=== PATIENT | male | born 1960 | race Caucasian/White ===

== ENCOUNTER 2021-11-24 10:17 | Inpatient (IN) | payer OTHER ==
[~2021-11-24] VITALS: Ht 167.6 cm; Wt 90.3 kg
--- NOTE | ~2021-11-24 | O ---
[facility] [place] [address] OPERATIVE REPORT Name: BRITTANIE SALDANA Room #: 463-P ADM IN M.R.#: [id number] Admission: 11/24/21 Attend Phys: Luis Sorensen MD Discharge: Date of : 62 Report #: [id number] THIS REPORT FOR: cc: FAM - Family physician unknown FAM - Family physician unknown Kevin White MD ~ DATE OF SERVICE: 11/25/2021 PREOPERATIVE DIAGNOSIS: Right below-knee amputation, chronic nonhealing surgical wound measuring 9 x 9 cm, 4 x 4 cm. POSTOPERATIVE DIAGNOSIS: Right below-knee amputation, chronic nonhealing surgical wound measuring 9 x 9 cm, 4 x 4 cm. OPERATION: Excisional debridement of nonhealing surgical wound of the right BKA stump, 9 x 9 cm, 4 x 4 cm (97 square cm), excisional depth was down through muscle. SURGEON: Kevin White. ANESTHESIA: General. ESTIMATED BLOOD LOSS: Minimal. SPECIMENS: Deep tissue for culture. DESCRIPTION OF PROCEDURE: After informed consent was obtained, the patient was brought to the operating room and placed supine. SCDs were placed and working, preoperative antibiotics were already administered, general anesthesia was induced. The right BKA stump was prepped and draped in the usual sterile fashion. This was an excisional debridement. Depth was down through the muscle. A 100% of the wounds were debrided. Post-debridement wound areas were 9 x 9 x 0.1 cm and 4 x 4 x 0.1 cm. A 100% of wounds were debrided. I used cautery to excise away necrotic tissue down through muscle. The area was then packed with sterile gauze. The wound beds were fair. Areas were dressed with 4 x 4's, Kerlix and Tay wrap. COMPLICATIONS: None. DISPOSITION: The patient was taken to recovery in satisfactory condition. By: 31 43 Kevin White MD /nt
[2021-11-24 10:24] VITALS: BP 93/69
[2021-11-24 10:54] LABS: ABSOLUTE NEUTROPHILS 8.4 thou/uL (1.4-8.2); BASOPHILS 0.3 % (0.0-2.0); EOSINOPHILS 0.8 % (0.0-3.0); HEMATOCRIT 37.4 % (42.0-52.0); HEMOGLOBIN 12.6 gm/dL (14.0-18.0); LYMPHOCYTES 10.9 % (24.0-44.0); MCH 30.9 pg (26.0-34.0); MCHC 33.8 g/dL (28.0-37.0); MCV 91.4 fL (80.0-100.0); MONOCYTES 4.4 % (1.0-8.0); PLATELET COUNT 238 thou/uL (150-400); POLYS 83.6 % (36.0-66.0); RBC 4.09 mil/uL (4.50-6.00); RDW 15.8 % (10.5-14.5); WBC 10.1 thou/uL (4.0-11.0)
[2021-11-24 10:58] LABS: CALCIUM 6.3 mg/dL (8.5-10.1); CREATININE 1.5 mg/dL (0.7-1.3)
[2021-11-24 11:00] LABS: POTASSIUM 2.5 mmol/L (3.5-5.1)
[2021-11-24 13:01] VITALS: BP 100/57
[2021-11-24] MEDS ORDERED: FLUOXETINE HCL40 MG PO (13:18)
[2021-11-24] MEDS ORDERED: CLOPIDOGREL75 MG PO (13:18)
[2021-11-24] MEDS ORDERED: LEVOTHYROXINE125 MCG PO (13:18)
[2021-11-24] MEDS ORDERED: BUSPIRONE HCL10 MG PO (13:18)
[2021-11-24] MEDS ORDERED: HYDROCHLOROTHIA25 M1 PO (13:18)
[2021-11-24 13:29] VITALS: BP 95/50
[2021-11-24 14:00] VITALS: BP 97/64
--- NOTE | 2021-11-24 15:01 | NUR ---
PT ADMITTED RELATED TO CELLULITIS, CHRONIC WOUND. CM REVIEWED CHART AND SPOKE WITH CARE TEAM. CM MET WITH PT AT BEDSIDE THIS DAY. PT APPEARES TO BE A&O X4. CM ROLE INTRODUCED. PT INDICATED HE HAD BEENAT [facility] SKILL[facility] PRIOR TO ADMISSION. PT HD BKA IN AUGUST AND HAS BEEN AT [facility] SKILLED SINCE. PT INICATED HE HAD BEEN GETTIGN DAILY THREAPY PT AND THAT THEY HAD USED A WC, SLIDEBOARD, AND COLE LIFT TO ASSIST WITH MOBILITY THREAD CHECKER. PT INDICATED HE NEEDED ASSISTANCE WITH TRANSFERS. PT INDICATED HE HAS AN APARTMENT WHERE HE HAD BEEN LIVING ALONE PRIOR TO HIS HOSPITALIZATION WHEN BKA OCCURED. ADDRESS [address] [place] [address] [address] [place] [address]. PT INDICATED HE HAS A FWW FOR USE THERE AND HCBS THROUGH A COMPANY THAT SOUNDS LIKE AT HOME [employer] NAMED [employer] 5 DAYS A WEEK ABOUT 2.5 HRS PER DAY. PT INDICATED HE WOULD PREFER TO RETURN DIRECTLY HOME ONCE MEDICALLY STABLE RATHER THEN GO BACK TO [facility]. CM ASKED IF PT WOULD BE AGREEABLE TO RETURN OR TO CONTINUE WITH SKILLED POST ACUTE CARE STAY IF RECOMMEND AND PT WAS NONCOMMITTAL AT TIME OF ASSESSMENT. PT INDICATED HE DOESN'T HAVE ANY CONTACTS IN CASE OF AN EMERGENCY. CM FOLLWIING REGARDING DC PLANNING. PT ON IV VAN AND CEFEPIME WC CONSULTED.
--- NOTE | 2021-11-24 15:54 | NUR ---
ASSUMED PT CARE FROM ED AT 1400. PT IS ALERT & ORIENTED X4 BUT VERY FUSSY. PT IS A WHEELCHAIR BOUND. PT HAS R BKA AND GOT INFECTED. PT HAS L CELLULITIS. PT IS ON 2L NC 02. PT C/O OF PAIN ON R LEG AND GIVEN PAIN MEDICATION PER PT REQUEST. FINISHED ADMISSION BUT UNABLE TO TAKE PICTURES DUE TO [facility] NOT AVAILABLE. WILL ENDORSE NIGHT NURSE. WILL FOLLOW POC.
[2021-11-24 20:38] VITALS: BP 113/78
--- NOTE | 2021-11-25 05:07 | NUR ---
ASSUMED PT CARE AT 1900. PT IS ALERT & ORIENTED X 4. PT HAS HAD MULTIPLE C/O OF PAIN, ADMINISTERED PAIN MEDS PRN AND NOTED RELIEF. PT HAS WOUNDS ON SACRUM, RIGHT BKA INFECTION, LEFT LOWER EXTREMITY CELLULITIS, AND LEFT HEEL WOUND. THIS NURSE TOOK PICTURES OF WOUNDS AND PLACED THEM IN PT'S CHART AND CONSULTED AUTOMATION CLERK. IV ABX & IVF ADMINISTERED. VSS AFEBRILE. PT IS ABLE TO MAKE NEEDS KNOWN AND ALL NEEDS ARE MET AT THIS TIME. CONTINUE WITH PLAN OF CARE.
[2021-11-25 06:06] LABS: CREATININE 1.2 mg/dL (0.7-1.3)
[2021-11-25 06:09] LABS: POTASSIUM 3.5 mmol/L (3.5-5.1)
[2021-11-25 06:11] LABS: CALCIUM 5.7 mg/dL (8.5-10.1); MAGNESIUM 0.4 mg/dL (1.8-2.4)
[2021-11-25 06:14] LABS: ABSOLUTE NEUTROPHILS 6.5 thou/uL (1.4-8.2); BASOPHILS 0.3 % (0.0-2.0); EOSINOPHILS 0.8 % (0.0-3.0); MCH 30.7 pg (26.0-34.0); MCHC 33.2 g/dL (28.0-37.0); MCV 92.5 fL (80.0-100.0); MONOCYTES 5.5 % (1.0-8.0); PLATELET COUNT 188 thou/uL (150-400); POLYS 81.4 % (36.0-66.0); RBC 3.57 mil/uL (4.50-6.00); RDW 15.6 % (10.5-14.5); WBC 7.9 thou/uL (4.0-11.0)
[2021-11-25 08:09] VITALS: BP 105/72
--- NOTE | 2021-11-25 12:21 | NUR ---
PT CONTINUES ON CEFEPIME AND VANC. PT TO HAVE I&D THIS DAY. CM TO SEND CLINICAL UPDATE TO [facility] POST PROCEDURE. CARE TEAM INDICATED THAT PT WILL BE HERE THROUGH THE WEEKEND. CM FOLLOWING REGARDING DC PLANNING.
[2021-11-25 21:14] VITALS: BP 115/76
--- NOTE | 2021-11-26 04:55 | HC ---
[facility] [place] [address] CONSULTATION Name: BRITTANIE SALDANA Room #: 463-P ADM IN M.R.#: [id number] Admission: 11/24/21 Attend Phys: Luis Sorensen MD Discharge: Date of : 62 Report #: [id number] THIS REPORT FOR: cc: FAM - Family physician unknown FAM - Family physician unknown Jae Cavazos MD ~ DATE OF SERVICE: 11/25/2021 INFECTIOUS DISEASE CONSULTATION ATTENDING PHYSICIAN: Dr. Sorensen. REASON FOR EVALUATION: Right stump site of below-knee amputation increasing inflammation, suggests cellulitis with breakdown. HISTORY OF PRESENT ILLNESS: Chart reviewed. The patient examined. This is a 61-year-old gentleman with history of diabetes mellitus, complicated by vasculopathy, also has underlying COPD, continues to smoke. He underwent previous right below-knee amputation. Also, more recently has had left great toe amputation in 08/2021. Apparently felt to have wound-related infection with increasing inflammation associated with the right stump. He was seen in the wound care center and referred for hospitalization. He is scheduled to undergo operative debridement. It is difficult to ascertain history, he is somewhat reluctant. He denies significant fevers, chills. Appetite has been satisfactory. He reports his blood sugars have been reasonably well controlled. Denies any pulmonary or gastrointestinal complaints. He was empirically started on therapy with cefepime and vancomycin. He did undergo additional testing. Coronavirus testing was negative. Lactic acid 1.4. Sed rate of 36. Blood cultures collected at time of admission are sterile thus far. ALLERGIES: None known. CURRENT MEDICATIONS: Include fluoxetine, levothyroxine, pantoprazole, enoxaparin, cefepime, vancomycin, buspirone, hydrocodone. PAST MEDICAL HISTORY: As described above, history of diabetes mellitus type 2, complicated by vasculopathy, has underlying COPD, chronic anemia, history of depression, previous right below-knee amputation 08/2021 and left great toe amputation. SOCIAL HISTORY: He continues to smoke a pack a day. No ethanol, no illicit drug use. FAMILY HISTORY: Noncontributory. REVIEW OF SYSTEMS: Otherwise unremarkable. [facility] [address] [place] [address] CONSULTATION Name: BRITTANIE SALDANA Room #: 463-P [facility] IN [facility]#: [id number] Admission: 11/24/21 Attend Phys: Luis Sorensen MD Discharge: Date of : 62 Report #: [id number] PHYSICAL EXAMINATION; GENERAL: Appears somewhat older than stated age, chronically ill-appearing, undernourished, mild to moderate distress, slightly encephalopathic. VITAL SIGNS: Temperature 97.6, pulse 106, respirations 19, blood pressure 105/72. SKIN: Warm, dry, no rashes. HEENT: Normocephalic. Extraocular muscles intact. NECK: Supple. LUNGS: Diminished breath sounds. There are some wheezes. HEART: Regular. I do not appreciate murmur. ABDOMEN: Mildly distended, somewhat firm, nontender. EXTREMITIES: Right lower extremity dressing in place at the stump site. GENITOURINARY: Deferred. RECTAL: Deferred. LABORATORY DATA: Recent CBC from today, white count 7.9, H and H 11.0 and 33.0, platelets of 188. Electrolytes: Sodium 132, potassium 3.5, chloride 94, bicarbonate 28, anion gap of 10, BUN and creatinine 15 and 1.2. Estimated GFR of 62. ASSESSMENT AND PLAN: Inflammatory process involving the right stump failure with skin and soft tissue infection. We will continue empiric broad-spectrum antimicrobial therapy. Noted, he is scheduled to undergo operative debridement today. We will follow postoperatively. At this point, he is not overtly toxic. We will add incentive spirometry. He is certainly at risk for additional complications. <ELECTRONICALLY SIGNED> By: Jae Cavazos MD 11/26/21 0455 [id number] Jae Cavazos MD /nt
--- NOTE | 2021-11-26 05:56 | NUR ---
Pt returned from OR at 2100 via bed accompanied by PACU nurses. A/OX4,VSS. C/o pain 10/10 medicated per EMAR with some relief reported. Dsg to right stump C/D/I. Voiding per urinal. Fall precautions in place will continue to monitor pt.
[2021-11-26 09:33] VITALS: BP 111/71
[2021-11-26 13:21] VITALS: BP 111/71
[2021-11-26 20:03] VITALS: BP 113/76
--- NOTE | 2021-11-27 03:59 | NUR ---
Assumed pt care at 1900. A/OX4,VSS.C/o pain to right stump medicated per EMAR with relief reported.Dsg to right stump C/D/I. Poor PO intake,on IVF. Resting quietly at this time w/o any distress will continue to monitor pt. Fall precautions in place.
[2021-11-27 06:47] LABS: HEMATOCRIT 30.3 % (42.0-52.0); HEMOGLOBIN 10.7 gm/dL (14.0-18.0); MCH 32.6 pg (26.0-34.0); MCHC 35.1 g/dL (28.0-37.0); MCV 92.8 fL (80.0-100.0); RBC 3.27 mil/uL (4.50-6.00); RDW 15.6 % (10.5-14.5)
[2021-11-27 07:07] LABS: CALCIUM 6.8 mg/dL (8.5-10.1); CREATININE 0.9 mg/dL (0.7-1.3)
[2021-11-27 07:12] LABS: POTASSIUM 2.9 mmol/L (3.5-5.1)
[2021-11-27 07:28] VITALS: BP 117/72
--- NOTE | 2021-11-27 09:57 | NUR ---
0712 LAB CALLED WITH CRITICAL LOW POTASSIUM OF 2.[address] RIVAS PAGED 0743 DR. RIVAS CALLED BACK, REPORTED LAB VALUE, PT ON POTASSIUM PROTOCOL, INITIATED 08 PHARMACY CALLED AND STATED OUT OF IV POTASSIUM AND TO GIVE 20 MEQ EVERY HOUR X 3, DRAW LAB 4 HOURS AFTER 3RD/LAST DOSE. 1000 PT IS STILL REFUSING TURNS, ANNOYED WITH STAFF, DOES NOT WISH TO BE BOTHERED.
[2021-11-27 15:43] VITALS: BP 117/77
--- NOTE | 2021-11-27 19:16 | NUR ---
BEDSIDE SHIFT REPORT GIVEN TO NIGHT NURSE, LINES IN PLACE, PT IN STABLE CONDITION, NEEDS MET
[2021-11-27 19:26] VITALS: BP 123/7
--- NOTE | 2021-11-28 04:05 | NUR ---
RECEIVED CARE OF THIS PATIENT AT 1900. PATIENT ALERT AND ORIENTED X4 BUT IS VERY FORGETFUL. HAS BEEN TOLD TO USE CALL LIGHT AND SHOWN HOW TO USE SEVERAL TIMES BUT STILL CALL OUT. DRESSING ON R STUMP D/I. ACCUCHECK WAS 88. NO COVERAGE ORDERED. IV PATENT IN RFA WITH FLUIDS INFUSING. L HAND EDEMATOUS. HAS ONE EPISODE OF EMESIS OF 10CC BROUN EMESIS. C/O PAINM MED GIVEN. SLEPT OFF AND ON DURING NIGHT.
[2021-11-28 05:33] LABS: HEMATOCRIT 31.7 % (42.0-52.0); HEMOGLOBIN 10.5 gm/dL (14.0-18.0); MCH 31.1 pg (26.0-34.0); MCHC 33.2 g/dL (28.0-37.0); MCV 93.6 fL (80.0-100.0); RBC 3.39 mil/uL (4.50-6.00); RDW 15.8 % (10.5-14.5); WBC 6.2 thou/uL (4.0-11.0)
[2021-11-28 05:43] LABS: ALBUMIN 1.3 g/dL (3.4-5.0); CREATININE 0.9 mg/dL (0.7-1.3); MAGNESIUM 1.1 mg/dL (1.8-2.4); POTASSIUM 3.7 mmol/L (3.5-5.1)
[2021-11-28 07:05] VITALS: BP 111/70
[2021-11-28 15:58] VITALS: BP 123/79
--- NOTE | 2021-11-28 16:56 | NUR ---
CARE TEAM INDICATED THAT PT NEEDED PICC FOR IV ABX UPON DC. AWAITING ORDER FOR PICC. CM HAD GIVEN ADMISSIONS AT [facility] A HEADS UP THAT PT WOULD LIKELY BE MEDICALLY STABLE TO DC BACK THIS DAY. THEY WERE AWARE AND ABLE TO ACCEPT. STILL AWAITING PICC OF THIS TIME. CM TO FACILITATE DC BACK TO [facility] SKILLED THIS AFTERNOON.
--- NOTE | 2021-11-28 18:36 | NUR ---
VAT CONSULTED FOR PICC. PT SLIGHTLY AGGITATED. HARSH COUGH THROUGHOUT PROCEDURE,PT KEPT PULLING STERILE FIELD DOWN AND COUGHING. CHANTE BRACHIAL WAS WIDELY PATENT WITH USG ,MEASURED 37%. 4FR POWER SL PICC TRIMMED TO 37CM INSERTED TO 0CM WITH PEAKED PWAVES FOR CONFIRMATION. PICC RELEASED FOR IMMEDIATE USE PER PROTOCOL
[2021-11-28 20:49] VITALS: BP 126/79
--- NOTE | 2021-11-29 12:54 | HC ---
[facility] [place] [address] CONSULTATION Name: BRITTANIE SALDANA Room #: 463- ADM IN M.R.#: [id number] Admission: 11/24/21 Attend Phys: Luis Sorensen MD Discharge: Date of : 62 Report #: [id number] THIS REPORT FOR: cc: FAM - Family physician unknown FAM - Family physician unknown Anthony Blackwell MD ~ DATE OF SERVICE: 11/25/2021 CHIEF COMPLAINT: Multiple skin ulcers. HISTORY OF PRESENT ILLNESS: This is a 61-year-old male patient with a history of type 2 diabetes mellitus, underlying COPD, who has been admitted with breakdown of his right BKA stump. He had an x-ray suggesting periosteal reactive changes. He has a sacral ulcer as well as a left heel ulcer and I have been asked to see him with regard to wound care. He is being seen by surgery and then scheduled to go to surgery for debridement. PAST MEDICAL HISTORY: Positive for COPD, type 2 diabetes mellitus, anemia, peripheral vascular disease, major depressive disorder and history of tobacco use. SOCIAL HISTORY: Positive for cigarette use. Daily smoker. No alcohol use. MEDICATIONS: Include Synthroid, Plavix, BuSpar, fluoxetine and hydrochlorothiazide. ALLERGIES: No known drug allergies. FAMILY HISTORY: Noncontributory. REVIEW OF SYSTEMS: CONSTITUTIONAL: The patient denies fever, chills, weight loss. NEUROLOGICAL: The patient denies focal weakness. ENT: The patient denies earache, nasal drainage, sore throat. CARDIOVASCULAR: The patient denies chest pain, palpitations or diaphoresis. PULMONARY: The patient denies cough, shortness of breath. GASTROINTESTINAL: No nausea or abdominal pain. ORTHOPEDIC: The patient complains of pain in his right BKA site as well as sacral region. Others systems in a 14-point review of systems are negative. PHYSICAL EXAMINATION: VITAL SIGNS: At this time include temperature 36.4, pulse 106, respirations 19, blood pressure 105/72. GENERAL: This is a chronically ill-appearing male patient who appears to be in [address] [address] CONSULTATION Name: BRITTANIE SALDANA Room #: 463-P [facility] IN M.R.#: [id number] Admission: 11/24/21 Attend Phys: Luis Sorensen MD Discharge: Date of : 62 Report #: [id number] moderate discomfort. HEENT: Head normocephalic. Nose and throat clear. NECK: Supple. LUNGS: Clear. ABDOMEN: Soft. Bowel sounds are present. EXTREMITIES: Examination of the sacral region demonstrates an unstageable sacral pressure ulceration with moderate fibrin. No bony exposure noted at this time. The abdomen is soft and nontender. Right BKA shows large areas of breakdown and necrotic tissue present. The left heel demonstrates what appears to be dry stable eschar posteriorly. NEUROLOGIC: The patient is alert, moving all 4 extremities. LABORATORY DATA: Sodium 132, potassium 3.5, chloride 94, CO2 of 28, BUN 15, creatinine 1.2. White blood cell count 7.9 with a hemoglobin of 11.0. CLINICAL IMPRESSION: 1. Right below-knee amputation stump with evidence of multiple areas of breakdown and wound infection, unstageable sacral pressure ulceration. 2. Unstageable pressure ulcer, left heel. RECOMMENDATIONS: At this point in time, the patient to go to the OR today for debridement. We will defer to surgery for dressings at this time and reassess once he has cleared the postoperative period. Recommend quarter strength Dakin's moist gauze b.i.d. to the sacral region. Low air loss mattress q. 2 hour turning and positioning. Betadine paint to the left heel with PRAFO boot. Check an arterial Doppler. I appreciate being asked to see him in consultation. <ELECTRONICALLY SIGNED> By: Anthony Blackwell MD 11/29/21 1254 1202 [id number] Anthony Blackwell MD /nt
== END 2021-11-29 | DRG 500 ==
LOC: ER 10:17 → 4W 12:39 → EROBS 12:39 → 4W 13:29
PROVIDERS: Nurse Practitioner; Student in an Organized Health Care Education/Training Program; ADMIT Hospitalist; ATTEND Hospitalist
PROC: 0KBS0ZZ Excision of Right Lower Leg Muscle, Open Approach (ICD-10-PCS; principal; 2021-11-25)
DX: T87.43 Infection of amputation stump, right lower extremity (principal); L89.153 Pressure ulcer of sacral region, stage 3; L89.323 Pressure ulcer of left buttock, stage 3; E43 Unspecified severe protein-calorie malnutrition; L03.115 Cellulitis of right lower limb; N17.9 Acute kidney failure, unspecified; E87.1 Hypo-osmolality and hyponatremia; E87.6 Hypokalemia; J44.9 Chronic obstructive pulmonary disease, unspecified; E11.51 Type 2 diabetes mellitus with diabetic peripheral angiopathy without gangrene; F32.9 Major depressive disorder, single episode, unspecified; F17.210 Nicotine dependence, cigarettes, uncomplicated; F41.9 Anxiety disorder, unspecified; Y83.8 Other surgical procedures as the cause of abnormal reaction of the patient, or of later complication, without mention of misadventure at the time of the procedure; E03.9 Hypothyroidism, unspecified; L89.620 Pressure ulcer of left heel, unstageable; R53.81 Other malaise; Z89.511 Acquired absence of right leg below knee; Z95.820 Peripheral vascular angioplasty status with implants and grafts; Z71.6 Tobacco abuse counseling; Z68.32 Body mass index [BMI] 32.0-32.9, adult; N31.9 Neuromuscular dysfunction of bladder, unspecified; B95.62 Methicillin resistant Staphylococcus aureus infection as the cause of diseases classified elsewhere; B96.5 Pseudomonas (aeruginosa) (mallei) (pseudomallei) as the cause of diseases classified elsewhere; Z20.828 Contact with and (suspected) exposure to other viral communicable diseases
CPT/HCPCS: 10040; 27000; 50010; 50101; 50386; 57091; 62110; 62900; 70005

== ENCOUNTER → 2021-11-24 | Outpatient (CLI) | payer OTHER ==
[~2021-11-24] MED LIST: BUSPIRONE HCL10 MG PO; CLOPIDOGREL75 MG PO; FLUOXETINE HCL40 MG PO; HYDROCHLOROTHIA25 M1 PO; LEVOTHYROXINE125 MCG PO
== END ==
LOC: HYPER 09:10
PROVIDERS: ATTEND Emergency Medicine
DX: T87.89 Other complications of amputation stump (principal); E11.622 Type 2 diabetes mellitus with other skin ulcer; L97.812 Non-pressure chronic ulcer of other part of right lower leg with fat layer exposed; E11.40 Type 2 diabetes mellitus with diabetic neuropathy, unspecified; E11.51 Type 2 diabetes mellitus with diabetic peripheral angiopathy without gangrene; E66.01 Morbid (severe) obesity due to excess calories; J44.9 Chronic obstructive pulmonary disease, unspecified; F17.210 Nicotine dependence, cigarettes, uncomplicated; F32.9 Major depressive disorder, single episode, unspecified; F41.9 Anxiety disorder, unspecified; Z89.412 Acquired absence of left great toe; Z68.30 Body mass index [BMI] 30.0-30.9, adult; Y83.5 Amputation of limb(s) as the cause of abnormal reaction of the patient, or of later complication, without mention of misadventure at the time of the procedure